=== PATIENT | female | born 1945 | race Caucasian/White ===

== ENCOUNTER 2016-05-12 10:36 | Emergency (ER) | payer MEDICARE ==
[2016-05-12 12:07] VITALS: BP 148/71
--- NOTE | 2016-05-12 12:22 | UC ---
Respiratory Complaint HPI - HPI Summary HPI Summary: Pt presents with c/o cough and wheezing X 10 days. pt seen by PCP and has scheduled appointment with catholic priest on 05/31. Pt was given 10 prescription for amoxicillin and reports that she does not feel any better. Pt is a current everyday smoker and is newly following with a catholic priest for SOB. - History of Current Complaint Chief Complaint: UCRespiratory Stated Complaint: COUGH,DX W/BRONCHITIS Time Seen by Provider: 05/12/16 12:16 Hx Obtained From: Patient ?: No Onset/Duration: Gradual Onset, Lasting Weeks Timing: Constant Severity Initially: Mild Severity Currently: Moderate Character: Cough: Nonproductive Aggravating Factors: Exertion, Deep Breaths, Recumbent Position Alleviating Factors: Nothing Associated Signs And Symptoms: Positive: Wheezing - Risk Factors Cardiac Risk Factors: Hypertension Pseudomonas Risk Factors: Negative Tuberculosis Risk Factors: Smoking - Allergies/Home Medications Allergies/Adverse Reactions: Allergies Allergy/AdvReac Type Severity Reaction Status Date / Time Eszopiclone [From [facility]] AdvReac Intermediate Insomnia Verified 05/12/16 11:54 Home Medications: Home Medications Albuterol 2.5MG/3ML (0.083%)* [Ventolin 2.5 MG/3 ML NEB.VANDANA*] 2.5 mg INH Q6H PRN 05/12/16 [History Confirmed 05/12/16] Albuterol HFA INHALER* [Ventolin HFA Inhaler*] 1 - 2 puff INH Q6H PRN 05/12/16 [ History Confirmed 05/12/16] Amoxicillin (*) [Amoxicillin 875 MG (*)] 875 mg PO BID 05/12/16 [History Confirmed 05/12/16] Atenolol TAB* [Tenormin TAB* 50 MG] 100 mg PO DAILY 05/12/16 [History Confirmed 05/12/16] Furosemide TAB* [Lasix TAB*] 20 mg PO DAILY 05/12/16 [History Confirmed 05/12/16 ] Levothyroxine TAB* [Synthroid 25 MCG TAB*] 25 mcg PO DAILY 05/12/16 [History Confirmed 05/12/16] Losartan TAB* [Cozaar TAB*] 50 mg PO DAILY 05/12/16 [History Confirmed 05/12/16] Phentermine HCl 37.5 mg PO DAILY 05/12/16 [History Confirmed 05/12/16] amLODIPine TAB* [Norvasc TAB*] 10 mg PO DAILY 05/12/16 [History Confirmed ] PMH/Surg Hx/FS Hx/Imm Hx Previously Healthy: No - see past PMH Endocrine History Of: Reports: Thyroid Disease Cardiovascular History Of: Reports: Hypertension - Surgical History Surgical History: Yes Surgery Procedure, Year, and Place: gallbladder. spinal surgery/cervical. minor foot surgeries - Family History Known Family History: Positive: Cardiac Disease - Social History Alcohol Use: None Substance Use Type: None Smoking Status (MU): Current Some Day Smoker Type: Cigarettes Amount Used/How Often: 6 cigarettes a week Length of Time of Smoking/Using Tobacco: on & off 30 years Household Exposure Type: Cigarettes - Immunization History Most Recent Influenza Vaccination: 4430-8934 Most Recent Pneumonia Vaccination: 2011 Review of Systems Constitutional: Fatigue Skin: Negative Eyes: Negative ENT: Negative Respiratory: Shortness Of Breath, Cough, Other - wheezing Cardiovascular: Negative Gastrointestinal: Negative Genitourinary: Negative Motor: Negative Neurovascular: Negative Musculoskeletal: Negative Neurological: Negative Psychological: Negative All Other Systems Reviewed And Are Negative: Yes Physical Exam Triage Information Reviewed: Yes Appearance: Well-Appearing Vital Signs: Initial Vital Signs Temp 99.0 F 05/12/16 11:59 Pulse 62 05/12/16 11:59 Resp 16 05/12/16 11:59 BP 148/71 05/12/16 11:59 Pulse Ox 95 05/12/16 11:59 Vital Signs Reviewed: Yes Eye Exam: Normal ENT Exam: Normal Neck exam: Normal Respiratory Exam: Other Respiratory: Positive: Wheezing - throughout all Cardiovascular Exam: Other Cardiovascular: Positive: Murmur:Sys:Grade _?_/ Musculoskeletal Exam: Normal Neurological Exam: Normal Psychological Exam: Normal Skin Exam: Normal UC Diagnostic Evaluation - Laboratory O2 Sat by Pulse Oximetry: 95 Respiratory Course/Dx - Differential Dx/Diagnosis Differential Diagnosis/HQI/PQRI: Bronchitis, Exacerbation Of COPD, Influenza Provider Diagnoses: reactive airway disease. exacerbation of COPD Discharge - Discharge Plan Condition: Stable Disposition: HOME Prescriptions: Cetirizine* [ZyrTEC 10 MG TAB*] 10 mg PO DAILY #20 tab Montelukast Sodium TAB* [Singulair TAB*] 10 mg PO BEDTIME #20 tab methylPREDNISolone TAB* [Medrol TAB*] 4 - 8 mg PO .SEE COURTNEY #1 courtney Patient Education Materials: Reactive Airways Disease (ED), Wheezing (ED) Referrals: Benita VILLATORO,Molly [Primary Care Provider] - As Soon As Possible Additional Instructions: Please follow up with your PCP or return to clinic as needed. Also, you have indicated that you have an appointment with a catholic priest on May 31, 2016. Please keep this appointment.
== END 2016-05-12 12:40 | disposition home or self-care (01) ==
LOC: UCCORT 10:36
DX: J44.1 Chronic obstructive pulmonary disease with (acute) exacerbation (principal); J45.998 Other asthma; R06.02 Shortness of breath; E07.9 Disorder of thyroid, unspecified; I10 Essential (primary) hypertension; F17.210 Nicotine dependence, cigarettes, uncomplicated; Z88.8 Allergy status to other drugs, medicaments and biological substances
CPT/HCPCS: 99212; G0463

== ENCOUNTER 2016-11-29 15:36 | Emergency (ER) | payer MEDICARE ==
--- NOTE | 2016-11-29 16:59 | UC ---
Respiratory Complaint HPI - HPI Summary HPI Summary: 71 year old female with h/o asthma and goes to Dr Monte for this. recently on z pack for exposure to pertussis from 8 mo old family member. was feeling better after finishing the z pack 3 days ago and now with worsening wheezing. no fever. has breo and proair and not helping much. needed steroids last year and it helped and she feels similar to that at this time. - History of Current Complaint Chief Complaint: UCGeneralIllness Stated Complaint: UPPER RESPIRATORY Time Seen by Provider: 11/29/16 16:51 - Allergies/Home Medications Allergies/Adverse Reactions: Allergies Allergy/AdvReac Type Severity Reaction Status Date / Time Eszopiclone [From Lunesta] AdvReac Intermediate Insomnia Verified 11/29/16 16:21 PMH/Surg Hx/FS Hx/Imm Hx - Surgical History Surgical History: Yes Surgery Procedure, Year, and Place: gallbladder. spinal surgery/cervical. minor foot surgeries - Family History Known Family History: Positive: Cardiac Disease - Social History Alcohol Use: None Substance Use Type: None Smoking Status (MU): Current Some Day Smoker Type: Cigarettes Amount Used/How Often: 6 cigarettes a week Length of Time of Smoking/Using Tobacco: on & off 30 years Household Exposure Type: Cigarettes - Immunization History Most Recent Influenza Vaccination: 1821-0960 Most Recent Pneumonia Vaccination: 2011 Review of Systems Constitutional: Fatigue ENT: Nasal Discharge, Sinus Congestion Respiratory: Shortness Of Breath, Cough Is Patient Immunocompromised?: No All Other Systems Reviewed And Are Negative: Yes Physical Exam Triage Information Reviewed: Yes Appearance: Well-Appearing, No Pain Distress, Well-Nourished Vital Signs: Initial Vital Signs Temp 98.0 F 11/29/16 16:23 Pulse 65 11/29/16 16:23 Resp 18 11/29/16 16:23 BP 121/100 11/29/16 16:23 Pulse Ox 97 11/29/16 16:23 Vital Signs Reviewed: Yes Eye Exam: Normal ENT Exam: Normal Dental Exam: Normal Neck exam: Normal Neck: Positive: 1 Respiratory Exam: Normal Respiratory: Positive: Chest non-tender, Wheezing - diffuse expiratory wheeze b/ l. Negative: Crackles, Rhonchi, Stridor Cardiovascular Exam: Normal Abdominal Exam: Normal Musculoskeletal Exam: Normal Neurological Exam: Normal Psychological Exam: Normal Skin Exam: Normal UC Diagnostic Evaluation - Laboratory O2 Sat by Pulse Oximetry: 97 Respiratory Course/Dx - Course Course Of Treatment: treat as asthmatic bronchitis-- has already taken z pack but still with cough and wheeze -- start steroids and she asked for cough suppresant other than tessalon -- Reference #: [id number] -- BP elevated in UC setting and rechecked. CXR normal no infilatrate - Differential Dx/Diagnosis Differential Diagnosis/HQI/PQRI: Bronchitis, Lower Resp Infection, Sinusitis Provider Diagnoses: asthmatic bronchitis Discharge - Discharge Plan Condition: Good Disposition: HOME Prescriptions: Guaifenesin-Codeine [Cheratussin AC] 5 ml PO Q6HR PRN #1 bottle MDD 20ml PRN Reason: Cough predniSONE TAB* [Deltasone TAB*] 40 mg PO DAILY #10 tab Patient Education Materials: Acute Bronchitis (ED) Referrals: Benita VILLATORO,Molly [Primary Care Provider] - 4 Days
--- NOTE | 2016-11-29 17:44 | RAD ---
INDICATION: Cough and congestion for 3 days. History of asthma. History of tobacco use. COMPARISON: No relevant prior exams available on the [facility] PACS for comparison. TECHNIQUE: Dual energy PA and routine lateral views of the chest were obtained. REPORT: Elevated lung volumes and both diffuse mild prominence of the interstitial markings and patchy rarefaction of the mid to upper lung zone interstitial markings. The heart, pulmonary vasculature, and mediastinal contours are unremarkable. Anterior cervical fusion hardware. Thoracic degenerative spondylosis. IMPRESSION: Stigmata of obstructive lung disease. No acute pulmonary or cardiac process evident.
[2016-11-29 17:54] VITALS: BP 130/62
== END 2016-11-29 17:55 | disposition home or self-care (01) ==
LOC: UCCORT 15:36
DX: J45.909 Unspecified asthma, uncomplicated (principal); F17.210 Nicotine dependence, cigarettes, uncomplicated
CPT/HCPCS: 71020; 99212; G0463

== ENCOUNTER 2017-01-06 09:16 | Emergency (ER) | payer MEDICARE ==
[2017-01-06 10:02] VITALS: BP 145/65
--- NOTE | 2017-01-06 10:25 | UC ---
Respiratory Complaint HPI - HPI Summary HPI Summary: Cough for about 4 weeks. Not improving on OTC meds and z pack. She is a smoker with asthma. She has been compliant with inhalers and inhaled steroid. - History of Current Complaint Chief Complaint: UCRespiratory Stated Complaint: UPPER RESPIRATORY Time Seen by Provider: 01/06/17 09:58 Hx Obtained From: Patient ?: No Onset/Duration: Gradual Onset, Lasting Weeks Timing: Constant Severity Initially: Moderate Severity Currently: Moderate Character: Cough: Nonproductive Aggravating Factors: Deep Breaths, Recumbent Position Alleviating Factors: Nothing Associated Signs And Symptoms: Positive: Wheezing, URI, Nasal Congestion, Hoarseness. Negative: Dyspnea, Fever, Chills, Pleuritic Chest Pain, Hemoptysis , Dizziness, Calf Pain, Calf Swelling, Edema - Allergies/Home Medications Allergies/Adverse Reactions: Allergies Allergy/AdvReac Type Severity Reaction Status Date / Time Eszopiclone [From Lunesta] AdvReac Intermediate Insomnia Verified 11/29/16 16:21 PMH/Surg Hx/FS Hx/Imm Hx Previously Healthy: No - asthma, smoker. - Surgical History Surgical History: Yes Surgery Procedure, Year, and Place: gallbladder. spinal surgery/cervical. minor foot surgeries - Family History Known Family History: Positive: Cardiac Disease - Social History Alcohol Use: None Substance Use Type: None Smoking Status (MU): Current Some Day Smoker Type: Cigarettes Amount Used/How Often: 6 cigarettes a week Length of Time of Smoking/Using Tobacco: on & off 30 years Household Exposure Type: Cigarettes - Immunization History Most Recent Influenza Vaccination: [id number] Most Recent Pneumonia Vaccination: 2011 Review of Systems ENT: Sinus Congestion Respiratory: Cough All Other Systems Reviewed And Are Negative: Yes Physical Exam Triage Information Reviewed: Yes Appearance: Well-Appearing, No Pain Distress, Well-Nourished Vital Signs: Initial Vital Signs Temp 97.8 F 01/06/17 09:59 Pulse 73 01/06/17 09:59 Resp 16 01/06/17 09:59 BP 145/65 01/06/17 09:59 Pulse Ox 99 01/06/17 09:59 Vital Signs Reviewed: Yes Eyes: Positive: Conjunctiva Clear ENT: Positive: Hearing grossly normal, Pharynx normal, Pharyngeal erythema, Nasal congestion, TMs normal, Hoarse voice, Uvula midline. Negative: Nasal drainage, TM bulging, TM dull, TM red, Tonsillar swelling, Tonsillar exudate, Trismus, Muffled voice, Dental tenderness, Sinus tenderness Neck: Positive: Supple, Nontender, No Lymphadenopathy Respiratory: Positive: No respiratory distress, No accessory muscle use, Rhonchi , Wheezing. Negative: Respiratory distress, Decreased breath sounds, Accessory muscle use, Crackles, Stridor Cardiovascular: Positive: RRR, No Murmur, Pulses Normal, Brisk Capillary Refill Abdomen Description: Positive: Nontender, No Organomegaly, Soft. Negative: Distended, Guarding Musculoskeletal: Positive: ROM Intact, No Edema Neurological: Positive: Alert, Muscle Tone Normal. Negative: Fatigued Skin: Negative: rashes UC Diagnostic Evaluation - Laboratory O2 Sat by Pulse Oximetry: 99 Respiratory Course/Dx - Course Course Of Treatment: cough and congestion wthout any clinical signs of pneumonia. She may have underling copd and also has asthma. We will aggressively manage with cough meds and antibiotic as well as course of prednisone. - Differential Dx/Diagnosis Provider Diagnoses: acute bronchitis Discharge - Discharge Plan Condition: Good Disposition: HOME Prescriptions: Acetaminop/Codeine 30 MG TAB* [Tylenol/Codeine 30 MG TAB*] 1 tab PO BEDTIME PRN #15 tab MDD 1 PRN Reason: Cough DOXYcycline CAP(*) [DOXYcycline 100MG CAP(*)] 100 mg PO BID #20 cap predniSONE TAB* [Deltasone TAB*] 20 mg PO DAILY #20 tab Patient Education Materials: Acute Bronchitis (ED) Referrals: Molly Joy MD [Primary Care Provider] - If Needed
== END 2017-01-06 10:26 | disposition home or self-care (01) ==
LOC: UCCORT 09:16
DX: J20.9 Acute bronchitis, unspecified (principal); Z90.49 Acquired absence of other specified parts of digestive tract; Z72.0 Tobacco use
CPT/HCPCS: 99211; G0463

== ENCOUNTER 2018-12-08 16:26 | Emergency (ER) | payer MEDICARE ==
[2018-12-08 19:09] VITALS: BP 141/82
--- NOTE | 2018-12-08 19:24 | UC ---
Respiratory Complaint HPI - HPI Summary HPI Summary: 73-year-old female with history of asthma presents with complaints of one week history of harsh nonproductive cough, chest tightness, shortness of breath, and wheezing. States she often gets bronchitis a couple times a year and her current symptoms are similar to her past episodes. States she is been using her rescue inhaler 2 or 3 times a day. Last used around 8:00 this morning. Patient is a smoker. She has been followed by pulmonology in the past however her care worker recently retired and she is not established with anyone else. Denies fever, chills, nasal congestion, ear pain, sore throat, or chest pain. - History of Current Complaint Chief Complaint: UCGeneralIllness Stated Complaint: COUGH Time Seen by Provider: 12/08/18 19:11 Hx Obtained From: Patient Pain Intensity: 0 - Allergies/Home Medications Allergies/Adverse Reactions: Allergies Allergy/AdvReac Type Severity Reaction Status Date / Time eszopiclone [From [facility]] Allergy Insomnia Verified 12/08/18 19:02 Home Medications: Home Medications Budesonide NEB* [Pulmicort Neb*] 1 inh INH ONCE 12/08/18 [History Confirmed ] PMH/Surg Hx/FS Hx/Imm Hx Endocrine History: Thyroid Disease Cardiovascular History: Hypertension Respiratory History: Asthma - Surgical History Surgical History: Yes Surgery Procedure, Year, and Place: cholycystectomy. spinal surgery/cervical. minor foot surgeries - Family History Known Family History: Positive: Cardiac Disease - Social History Occupation: Retired Lives: With Family Alcohol Use: None Substance Use Type: None Smoking Status (MU): Current Some Day Smoker Type: Cigarettes Amount Used/How Often: 6 cigarettes a week Length of Time of Smoking/Using Tobacco: on & off 30 years Have You Smoked in the Last Year: Yes Household Exposure Type: Cigarettes - Immunization History Most Recent Influenza Vaccination: [id number] Most Recent Pneumonia Vaccination: 2011 Review of Systems All Other Systems Reviewed And Are Negative: Yes Constitutional: Negative: Fever, Chills Eyes: Negative: Drainage, Eye Redness ENT: Negative: Sore Throat, Ear Ache, Nasal Discharge, Sinus Congestion, Sinus Pain/Tenderness Respiratory: Positive: Shortness Of Breath, Cough, Other - Wheezing Cardiovascular: Negative: Palpitations, Chest Pain Gastrointestinal: Positive: Negative Genitourinary: Positive: Negative Musculoskeletal: Positive: Negative Neurological: Positive: Negative Is Patient Immunocompromised?: No Physical Exam - Summary Physical Exam Summary: GENERAL APPEARANCE: Alert and cooperative older adult female who appears to be in no acute distress. EYES: Conjunctiva clear. No drainage. EARS: External auditory canals and tympanic membranes clear, hearing grossly intact. NOSE: No nasal discharge. THROAT: Pharynx normal. No tonsilar inflammation, swelling, exudate, or lesions. Uvula midline. NECK: Neck supple, non-tender without lymphadenopathy. CARDIAC: Normal S1 and S2. No S3, S4 or murmurs. Rhythm is regular. There is no peripheral edema, cyanosis or pallor. Extremities are warm and well perfused. Capillary refill is less than 2 seconds. Peripheral pulses intact. LUNGS: Diminished bilateral breath sounds with diffuse wheezes. No rales or rhonchi noted. ABDOMEN: Positive bowel sounds. Soft, nondistended, nontender. No guarding or rebound. No masses or hepatosplenomegally. MUSKULOSKELETAL: ROM intact to all extremities. No joint erythema or tenderness. Normal muscular development. Normal gait. SKIN: Skin normal color, texture and turgor with no lesions or eruptions. Triage Information Reviewed: Yes Vital Signs: Initial Vital Signs Temp 98.9 F 12/08/18 19:04 Pulse 72 12/08/18 19:04 Resp 20 12/08/18 19:04 BP 141/82 12/08/18 19:04 Pulse Ox 96 12/08/18 19:04 Vital Signs Reviewed: Yes Respiratory Course/Dx - Course Course Of Treatment: 73-year-old female with history of asthma presents with complaints of one week history of harsh nonproductive cough, chest tightness, shortness of breath, and wheezing. States she often gets bronchitis a couple times a year and her current symptoms are similar to her past episodes. States she is been using her rescue inhaler 2 or 3 times a day. Last used around 8:00 this morning. Patient is a smoker. She has been followed by pulmonology in the past however her care worker recently retired and she is not established with anyone else. Denies fever, chills, nasal congestion, ear pain, sore throat, or chest pain. Afebrile. Vital signs stable. Patient had diminished bilateral breath sounds with diffuse wheezes bilaterally, harsh bronchospastic cough, and otherwise unremarkable exam. Patient was offered a breathing treatment but declined. Will treat for an acute bronchitis with asthma exacerbation. Patient states that she has been treated effectively in the past with amoxicillin therefore we'll start her on 875 mg twice daily for 10 days and put her on a five-day course of prednisone 50 mg daily to treat for the exacerbation. She was strongly encouraged to be using her rescue inhaler more frequently for any shortness of breath or wheezing. I also provided her with a prescription for Tessalon Perles 1 capsule every 8 hours as needed for cough. She is to follow-up with her primary care provider within the next 5 days for recheck of symptoms. Anticipatory guidance warning symptoms reviewed with the patient. Verbalizes understanding and agrees with plan of care. - Differential Dx/Diagnosis Differential Diagnosis/HQI/PQRI: Asthma, Bronchitis, Lower Resp Infection, Other - URI Provider Diagnosis: Acute bronchitis, Asthma exacerbation Discharge ED - Sign-Out/Discharge Documenting (check all that apply): Patient Departure All imaging exams completed and their final reports reviewed: No Studies - Discharge Plan Condition: Stable Disposition: HOME Prescriptions: Amoxicillin PO (*) [Amoxicillin 875 MG (*)] 875 mg PO BID #20 tab Benzonatate CAP* [Tessalon 100 MG CAP*] 100 mg PO TID PRN #21 cap PRN Reason: Cough predniSONE TAB* [Deltasone TAB*] 50 mg PO DAILY #5 tab Patient Education Materials: Asthma (ED), Acute Bronchitis (ED) Referrals: Benita VILLATORO,Molly [Primary Care Provider] - 5 Days Additional Instructions: Your history and exam are consistent with acute bronchitis with exacerbation of your asthma. With the duration of your symptoms and underlying asthma we will treat you with an antibiotic for the infection. Start amoxicillin 875 mg twice a day for 10 days. Take with food to avoid upset stomach. Be sure to complete the entire course even if feeling better. Start prednisone 50 mg daily for 5 days to help reduce inflammation your airways and improve the wheezing. Be sure to use your rescue inhaler as directed for any shortness of breath or wheezing. Get plenty of rest. Drink plenty of fluids. Run a cool mist humidifer in your room at night. Take over the counter acetaminophen (Tylenol) according to directions as needed for pain or fever. Take Tessalon Perles 1 cap every 8 hours as needed for cough. Follow up with your primary care provider within 5 days for a recheck of your symptoms. Seek immediate medical attention in the emergency room if you have fever greater than 100.5 F despite taking acetaminophen, have chest pain, difficulty breathing, or have any worsening of symptoms. - Billing Disposition and Condition Condition: STABLE Disposition: Home
== END 2018-12-08 19:31 | disposition home or self-care (01) ==
LOC: UCCORT 16:26
DX: J45.901 Unspecified asthma with (acute) exacerbation (principal); J20.9 Acute bronchitis, unspecified; I10 Essential (primary) hypertension; F17.210 Nicotine dependence, cigarettes, uncomplicated; Z88.8 Allergy status to other drugs, medicaments and biological substances; Z79.899 Other long term (current) drug therapy
CPT/HCPCS: 99212; G0463